=== PATIENT | male | born 1945 | race African-American/Black ===

== ENCOUNTER 2021-09-23 21:16 | Inpatient (IN) | payer OTHER ==
[~2021-09-23] VITALS: Ht 182.9 cm; Wt 89.4 kg
[2021-09-23 23:44] LABS: CLARITY URINE CLEAR (CLEAR); COLOR URINE YELLOW (YELLOW); KETONES URINE TRACE (NEGATIVE); LEUKOCYTE ESTERASE URINE NEGATIVE (NEGATIVE); NITRITE URINE NEGATIVE (NEGATIVE); OCCULT BLOOD URINE NEGATIVE (NEGATIVE); PROTEIN URINE TRACE (NEGATIVE); SPECIFIC GRAVITY URINE 1.029 (1.005-1.030)
[2021-09-24 00:16] LABS: *AMPHETAMINES SCREEN URINE NEGATIVE (NEGATIVE); *BARBITURATES SCREEN URINE NEGATIVE (NEGATIVE); *BENZODIAZEPINES SCREEN URINE NEGATIVE (NEGATIVE); *COCAINE SCREEN URINE NEGATIVE (NEGATIVE); CANNABINOID URINE SCREEN NEGATIVE (NEGATIVE); METHADONE URINE SCREEN NEGATIVE (NEGATIVE); OPIATES URINE SCREEN NEGATIVE (NEGATIVE); PHENCYCLIDINE URINE SCREEN NEGATIVE (NEGATIVE)
[2021-09-24 00:53] LABS: BASOPHILS % 0.2 % (0.0-2.0); EOSINOPHILS % 0.6 % (0.0-5.0); HEMATOCRIT. 42.3 % (42.0-52.0); HEMOGLOBIN. 14.3 g/dL (14.0-18.0); LYMPHOCYTES % 58.8 % (20.0-50.0); MEAN CORPUSCULAR HEMOGLOBIN 30.8 pg (28.0-32.0); MEAN CORPUSCULAR VOLUME 91.2 fL (80.0-94.0); MEAN PLATELET VOLUME 8.6 fl (7.4-10.4); MONOCYTES % 5.9 % (2.0-8.0); NEUTROPHILS % 34.5 % (40.0-76.0); PLATELET 171 x1000/uL (130-400); RED BLOOD CELL COUNT 4.63 mill/uL (4.7-6.1); RED CELL DISTRIBUTION WIDTH 13.9 % (11.6-14.6)
[2021-09-24 01:00] LABS: CHLORIDE 111 mEq/L (98-107)
[2021-09-24 01:20] LABS: ETHANOL BLOOD < 10 mg/dL
[2021-09-24] MEDS ORDERED: ACETAMINOPHEN 325MG TABLET PO PRN (05:15)
[2021-09-24] MEDS ORDERED: ONDANSETRON HCL 4MG/2ML INJ IV PRN (05:15)
[2021-09-24] MEDS ORDERED: CLONIDINE 0.1MG TABLET PO PRN (05:15)
[2021-09-24] MEDS ORDERED: DOCUSATE SODIUM 100MG CAPSULE PO PRN (05:15)
[2021-09-24] MEDS ORDERED: GUAIFENESIN 200MG/10ML SUGAR FREE UDC PO PRN (05:15)
[2021-09-24] MEDS ORDERED: LORAZEPAM 2MG/ML CPJ IM STA (06:32)
[2021-09-24] MEDS ORDERED: HALOPERIDOL LACTATE 5MG/ML VIAL IM ONE ×2 (06:45)
[2021-09-24 09:55] VITALS: BP 161/89
[2021-09-24] MEDS: ENOXAPARIN 40MG/0.4ML SYR SUBCUT SCH (10:34)
[2021-09-24] MEDS: MULTIVITAMINS,THER W-MINERALS TABLET PO SCH (10:34)
[2021-09-24] MEDS: AMLODIPINE 10MG TABLET PO SCH (10:34)
[2021-09-24 12:00] VITALS: BP 144/78
[2021-09-24 15:41] VITALS: BP 132/73
[2021-09-24] MEDS: DEXT 5%/0.45% NACL 1000ML 1,000 ML IV SCH ×2 (16:44→21:34)
[2021-09-24 20:18] VITALS: BP 148/87
[2021-09-24] MEDS: MEMANTINE HCL 5MG TABLET PO SCH (21:34)
[2021-09-25] VITALS: BP 128/84
[2021-09-25 04:00] VITALS: BP 134/87
[2021-09-25 07:39] LABS: HEMATOCRIT. 43.5 % (42.0-52.0); HEMOGLOBIN. 14.8 g/dL (14.0-18.0); MEAN CORPUSCULAR HEMOGLOBIN 30.5 pg (28.0-32.0); MEAN CORPUSCULAR VOLUME 89.8 fL (80.0-94.0); MEAN PLATELET VOLUME 8.9 fl (7.4-10.4); PLATELET 176 x1000/uL (130-400); RED BLOOD CELL COUNT 4.85 mill/uL (4.7-6.1); RED CELL DISTRIBUTION WIDTH 13.9 % (11.6-14.6)
[2021-09-25 08:00] VITALS: BP 159/90
[2021-09-25 08:07] LABS: VITAMIN B12 SERUM 1002 pg/mL (211-911)
[2021-09-25] MEDS: ENOXAPARIN 40MG/0.4ML SYR SUBCUT SCH (09:00)
[2021-09-25] MEDS: AMLODIPINE 10MG TABLET PO SCH (09:21)
[2021-09-25] MEDS: MEMANTINE HCL 5MG TABLET PO SCH (09:22)
[2021-09-25] MEDS: MULTIVITAMINS,THER W-MINERALS TABLET PO SCH (09:22)
[2021-09-25 10:10] LABS: PLATELET ESTIMATE NORMAL
[2021-09-25 12:00] VITALS: BP 149/93
[2021-09-25 14:25] VITALS: BP 149/93
[2021-09-25] MEDS: DEXT 5%/0.45% NACL 1000ML 1,000 ML IV SCH (14:35)
== END 2021-09-25 16:19 | disposition home or self-care (01) | DRG 305 ==
LOC: ER 21:16 → MICUSO 09-24 02:33 → 6WST 09-24 09:57
PROVIDERS: ADMIT Hospitalist; ATTEND Hospitalist
DX: I16.0 Hypertensive urgency (principal); G93.40 Encephalopathy, unspecified; E86.0 Dehydration; N40.0 Benign prostatic hyperplasia without lower urinary tract symptoms; I10 Essential (primary) hypertension; F03.90 Unspecified dementia, unspecified severity, without behavioral disturbance, psychotic disturbance, mood disturbance, and anxiety; Z91.83 Wandering in diseases classified elsewhere
CPT/HCPCS: 36415; 70551; 71045; 80053; 80305; 80320; 81003; 82140; 82607; 83880; 84443; 84484; 85025; 93005; 99285; J1630; J1650; J2060; G0480